=== PATIENT | male | born 2000 | race Asian ===

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

== ENCOUNTER 2019-06-22 13:23 | Emergency (ER) | payer OTHER ==
[~2019-06-22] VITALS: Ht 195.6 cm; Wt 104.5 kg
[~2019-06-22 13:23] MED LIST: KETO10TAB PO
[2019-06-22 13:24] VITALS: BP 146/69
[2019-06-22] MEDS ORDERED: IBUPROFEN 800 MG TAB PO ONE (14:00)
[2019-06-22] MEDS ORDERED: IBUP-1022 PO (14:21)
== END 2019-06-22 14:24 | disposition home or self-care (01) ==
LOC: M ED 13:23
DX: T23.001A Burn of unspecified degree of right hand, unspecified site, initial encounter (principal); T23.002A Burn of unspecified degree of left hand, unspecified site, initial encounter; X11.8XXA Contact with other hot tap-water, initial encounter; Y92.89 Other specified places as the place of occurrence of the external cause; Y99.0 Civilian activity done for income or pay